=== PATIENT | male | born 1990 | race Caucasian/White ===

== ENCOUNTER 2023-05-06 09:46 | Emergency (ER) | payer OTHER ==
[2023-05-06 10:00] LABS: BASOPHILS % (AUTO) 0.4 %; EOSINOPHILS % (AUTO) 0.3 %; HCT - HEMATOCRIT 47.4 % (42.0-52.0); HGB - HEMOGLOBIN 15.9 g/dL (14.0-18.0); LYMPHOCYTES # (AUTO) 1.4 10^3/uL (1.5-3.5); LYMPHOCYTES % (AUTO) 17.7 %; MEAN CORPUSCULAR HEMOGLOBIN 30.9 pg (27.0-31.0); MEAN CORPUSCULAR HGB CONC 33.5 g/dL (32.0-36.0); MEAN PLATELET VOLUME 9.9 fL (7.4-11.4); MONOCYTES # (AUTO) 0.8 10^3/uL (0.0-1.0); MONOCYTES % (AUTO) 10.2 %; NEUTROPHILS # (AUTO) 5.5 10^3/uL (1.5-6.6); NEUTROPHILS % (AUTO) 71.1 %; PLT - PLATELET COUNT 264 10^3/uL (130-450); RED BLOOD COUNT 5.15 10^6/uL (4.70-6.10); RED CELL DISTRIBUTION WIDTH 12.1 % (12.0-15.0); WHITE BLOOD COUNT 7.8 x10^3/uL (4.8-10.8)
[2023-05-06] MEDS ORDERED: OLANZapine ODT 5 MG TABLET TL ONE (10:07)
[2023-05-06 10:09] LABS: MUDS CUTOFF CONCENTRATIONS CUTOFF CONC BELOW:
[2023-05-06 10:24] LABS: BILIRUBIN,URINE NEGATIVE (NEGATIVE); GLUCOSE, URINE (UA) NEGATIVE (NEGATIVE); KETONES,URINE (UA) TRACE mg/dL (NEGATIVE); LEUKOCYTE ESTERASE, URINE NEGATIVE (NEGATIVE); NITRITE,URINE NEGATIVE (NEGATIVE); OCCULT BLOOD,URINE MODERATE (NEGATIVE); PH,URINE 5.5 PH (5.0-7.5); PROTEIN,URINE TRACE mg/dL (NEGATIVE); UROBILINOGEN,URINE 0.2 (NORMAL) E.U./dL (NORMAL)
[2023-05-06 10:28] LABS: CLARITY,URINE CLEAR (CLEAR)
[2023-05-06 10:35] LABS: BACTERIA,URINE Rare /HPF (None Seen); SQUAMOUS EPITHELIAL CELL,UR RARE Squamous (<= Few)
[2023-05-06 10:36] LABS: AMPHETAMINE SCREEN,URINE NEGATIVE (NEGATIVE); BARBITURATE SCREEN,UR NEGATIVE (NEGATIVE); BENZODIAZEPINES SCREEN, URINE NEGATIVE (NEGATIVE); CASTS, URINE 3-5 Hyaline Casts /LPF; COCAINE SCREEN URINE NEGATIVE (NEGATIVE); METHADONE SCREEN, URINE NEGATIVE (NEGATIVE); METHAMPHETAMINES SCREEN, URINE NEGATIVE (NEGATIVE); MUCUS,URINE Moderate Strands; OPIATE SCREEN, URINE NEGATIVE (NEGATIVE); OXYCODONE SCREEN, URINE NEGATIVE (NEGATIVE); PROPOXYPHENE SCREEN, URINE NEGATIVE (NEGATIVE); THC CANNABINOID SCREEN, URINE POSITIVE (NEGATIVE); TRICYCLIC ANTIDEPRESSANT,URINE NEGATIVE (NEGATIVE)
[2023-05-06 10:40] LABS: ACETAMINOPHEN < 10 ug/mL (10-30); ALBUMIN 4.5 g/dL (3.2-5.5); ALBUMIN/GLOBULIN RATIO 1.4 (1.0-2.2); ALKALINE PHOSPHATASE 37 IU/L (42-121); ALT ALANINE AMINOTRANSFERASE 35 IU/L (10-60); AST ASPARTATE AMINOTRANSFERASE 31 IU/L (10-42); BILIRUBIN,TOTAL 0.8 mg/dL (0.2-1.0); BUN - BLOOD UREA NITROGEN 14 mg/dL (6-20); CALCIUM 9.1 mg/dL (8.5-10.3); CARBON DIOXIDE - CO2 26 mmol/L (21-32); CHLORIDE 103 mmol/L (101-111); CK- CREATINE KINASE 516 IU/L (22-269); CREATININE 0.9 mg/dL (0.6-1.2); ETOH - ETHANOL < 5.0 mg/dL; GFR - MDRD 98 (>89); GLUCOSE 112 mg/dL (70-100); LIPASE 25 U/L (22-51); MAGNESIUM 2.1 mg/dL (1.7-2.8); POTASSIUM 4.3 mmol/L (3.5-5.0); SALICYLATE < 6.0 mg/dL; SODIUM 138 mmol/L (135-145); TOTAL PROTEIN 7.8 g/dL (6.7-8.2)
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
--- NOTE | 2023-05-06 14:27 | ED Physician Documentation ---
Restraint [id number] - Immediate Situation Face to Face Evaluation Date: 05/06/23 Face to Face Evaluation Time: 14:27 Restraint Classification: Violent, seclusion Restraint Type: Seclusion - Behavioral Condition Attitude: Guarded Behavior: Withdrawn Orientation: Person, Place, Time Mood: Labile - Evaluation Review of Systems: Please see my note Pertinent History/Illicit Drugs/Medications/Results: Cannabis - Plan Need to Continue or Terminate Violent or Chemical Restraint: DC once it is safe to do so.
--- NOTE | 2023-05-06 14:27 | ED Physician Documentation ---
Restraint [id number] - Immediate Situation Face to Face Evaluation Date: 05/06/23 Face to Face Evaluation Time: 10:05 Restraint Classification: Violent, seclusion Restraint Type: Seclusion - Behavioral Condition Attitude: Guarded Behavior: Withdrawn Orientation: Person, Place, Time Mood: Labile - Evaluation Review of Systems: Please see my note Pertinent History/Illicit Drugs/Medications/Results: Cannabis - Plan Need to Continue or Terminate Violent or Chemical Restraint: DC once it is safe to do so.
[2023-05-06] MEDS ORDERED: LORazepam 1 MG TABLET PO STA (15:25)
[2023-05-06 20:25] VITALS: BP 152/83
== END 2023-05-06 20:23 ==
LOC: ED 09:46
DX: F23 Brief psychotic disorder (principal); Z20.822 Contact with and (suspected) exposure to COVID-19
CPT/HCPCS: 36415; 80053; 80306; 80307; 80320; 80329; 81001; 82550; 83690; 83735; 84443; 85025; 87635; 99285; A9270; J8499; 81003; 87086